=== PATIENT | male | born 1970 | race Caucasian/White ===

== ENCOUNTER 2023-12-22 15:46 | Emergency (ER) | payer BC, MEDICAID ==
[~2023-12-22] VITALS: Ht 177.8 cm; Wt 120.0 kg
[2023-12-22 15:56] VITALS: O2SAT 98
[2023-12-22 16:51] LABS: BASOPHILS % 0.6 % (0.0-2.0); DIFFERENTIAL COMMENT 0; EOSINOPHILS % 1.7 % (0.0-5.0); HEMATOCRIT. 39.6 % (42.0-52.0); HEMOGLOBIN. 12.7 g/dL (14.0-18.0); LYMPHOCYTES % 22.9 % (20.0-50.0); MEAN CORPUSCULAR HEMOGLOBIN 22.8 pg (28.0-32.0); MEAN CORPUSCULAR VOLUME 71.3 fL (80.0-94.0); MONOCYTES % 7.9 % (2.0-8.0); NEUTROPHILS % 66.9 % (40.0-76.0); PLATELET 198 x1000/uL (130-400); RED BLOOD CELL COUNT 5.56 mill/uL (4.7-6.1); RED CELL DISTRIBUTION WIDTH 16.3 % (11.6-14.6); WHITE BLOOD COUNT 7.8 x1000/uL (4.5-11.0)
[2023-12-22 16:58] LABS: CHLORIDE 103 mEq/L (98-107); POTASSIUM 3.6 mEq/L (3.5-5.1); SODIUM 139 mEq/L (136-145)
[2023-12-22 16:59] LABS: CALCIUM 9.8 mg/dL (8.7-10.4); CARBON DIOXIDE 29 mEq/L (21-32)
[2023-12-22 17:04] LABS: CREATININE 1.3 mg/dL (0.6-1.3); GLUCOSE 195 mg/dL (70-105); UREA NITROGEN BLOOD 16 mg/dL (9-23)
[2023-12-22 17:05] LABS: TROPONIN I HIGH SENSITIVITY 11 ng/L (3.0-53)
[2023-12-22 19:12] VITALS: TEMP 98.6
[2023-12-22 19:37] LABS: TROPONIN I HIGH SENSITIVITY 11 ng/L (3.0-53)
[2023-12-22 21:16] VITALS: BP 151/81; PULSE 64; RESP 16
== END 2023-12-22 21:18 | disposition home or self-care (01) ==
LOC: ER 15:46
DX: T67.5XXA Heat exhaustion, unspecified, initial encounter (principal); I11.0 Hypertensive heart disease with heart failure; I50.9 Heart failure, unspecified; E11.9 Type 2 diabetes mellitus without complications; X58.XXXA Exposure to other specified factors, initial encounter; Y93.89 Activity, other specified; Y92.89 Other specified places as the place of occurrence of the external cause; Y99.8 Other external cause status
CPT/HCPCS: 36415; 71045; 80048; 83880; 84484; 85025; 93005; 99285